=== PATIENT | female | born 1985 | race Caucasian/White ===

== ENCOUNTER 2019-07-20 05:30 | Inpatient (IN) ==
[2019-07-20] MEDS ORDERED: Metoclopramide 10 MG/2 ML VIAL IVP PRN ×2 (05:50→12:44)
[2019-07-20] MEDS ORDERED: Famotidine 20 MG/2 ML VIAL IVP PRN (05:50)
[2019-07-20] MEDS ORDERED: Naloxone 0.4 MG/ML INJ IVP PRN (05:50)
[2019-07-20] MEDS ORDERED: Ringers Solution, Lactated 1,000 ML IVC ONE (05:51)
[2019-07-20] MEDS ORDERED: Ringers Solution, Lactated 1,000 ML IVC SCH (06:00)
[2019-07-20 06:41] LABS: Basophils % 0.2 %; Eosinophils # 0.1 K/mcL (0.0-0.6); Eosinophils % 0.5 %; Hematocrit 36.4 % (35.3-44.9); Immature Granulocytes % 0.8 % (0-4); Lymphocytes # 1.4 K/mcL (0.6-4.6); Lymphocytes % 14.7 %; Mean Corpuscular Hemoglobin 28.2 pg (28.0-33.3); Mean Corpuscular Volume 85.4 fL (83.0-100.0); Mean Platelet Volume 12.3 fL (9.4-12.4); Monocytes # 0.5 K/mcL (0.0-1.3); Monocytes % 5.5 %; Neutrophils # 7.6 K/mcL (1.6-8.9); Platelet Count 206 K/mcL (140-400); Red Blood Count 4.26 M/mcL (3.82-4.97); Red Cell Distribution Width 15.6 % (11.5-14.5); Segmented Neutrophils % 78.3 %; White Blood Count 9.7 K/mcL (4.3-11.1)
[2019-07-20] MEDS ORDERED: *HR* Morphine Sulfate/PF 10 MG/10 ML AMPUL ONE (06:56)
[2019-07-20] MEDS ORDERED: *HR* FentaNYL (PF) 100 MCG/2 ML VIAL ONE (06:56)
[2019-07-20] MEDS ORDERED: Acetaminophen IV 1,000 MG/100 ML INFUS..BTL IVPB ONE (07:39)
[2019-07-20] MEDS ORDERED: Ondansetron 4 MG/2 ML VIAL IVP PRN ×2 (07:39→12:44)
[2019-07-20] MEDS ORDERED: *HR* HYDROmorphone (PF) 1 MG/ML SYRINGE IVP PRN (07:39)
[2019-07-20] MEDS ORDERED: CeFAZolin Premix DUPLEX 2,000 MG/50 ML BAG IVPB ONE (07:41)
[2019-07-20] MEDS ORDERED: *HR* Oxytocin 10 UNIT/ML VIAL IM ONE ×2 (07:44→08:26)
[2019-07-20] MEDS ORDERED: Water for inj. (sterile) 10 ML ONE (07:44)
[2019-07-20] MEDS ORDERED: Ringers Solution, Lactated 1,000 ML ONE (08:05)
[2019-07-20 08:07] LABS: Amphetamine Screen,Urine Negative ng/mL (Cutoff=1000); Barbiturate Screen,Urine Negative ng/mL (Cutoff=200); Benzodiazepines Screen,Urine Negative ng/mL (Cutoff=200); Cannabinoid Screen,Urine Negative ng/mL (Cutoff = 50); Cocaine Screen,Urine Negative ng/mL (Cutoff= 300); Opiate Screen,Urine Negative ng/mL (Cutoff=300); Phencyclidine Screen,Urine Negative ng/mL (Cutoff=25)
[2019-07-20] MEDS ORDERED: Oxytocin 20 units/ LR 1000 mL 20 UNIT/1,000 ML BAG IVC ONE (12:30)
[2019-07-20] MEDS ORDERED: Acetaminophen 325 MG TABLET PO PRN (12:44)
[2019-07-20] MEDS ORDERED: Rho Immune Globulin 1,500 UNIT SYRINGE IM ONE (12:44)
[2019-07-20] MEDS ORDERED: Oxytocin 20 units/ LR 1000 mL 20 UNIT/1,000 ML BAG IVC SCH (12:44)
[2019-07-20] MEDS ORDERED: Sennosides 8.6 MG TABLET PO PRN (12:44)
[2019-07-20] MEDS: *HR* OxyCODONE/APAP 5/325 TABLET PO PRN (18:12)
[2019-07-20] MEDS: ceFAZolin 1,000 MG in Water for inj. (sterile) 10 ML IVP SCH (18:13)
[2019-07-20] MEDS: Simethicone 80 MG TAB.CHEW PO PRN (20:44)
[2019-07-20] MEDS: Ibuprofen 600 MG TABLET PO PRN (23:52)
[2019-07-21] MEDS: ceFAZolin 1,000 MG in Water for inj. (sterile) 10 ML IVP SCH ×2 (01:33→08:11)
[2019-07-21 05:27] LABS: Basophils % 0.2 %; Eosinophils # 0.1 K/mcL (0.0-0.6); Eosinophils % 0.6 %; Hematocrit 31.5 % (35.3-44.9); Immature Granulocytes % 0.6 % (0-4); Lymphocytes # 1.2 K/mcL (0.6-4.6); Lymphocytes % 12.1 %; Mean Corpuscular HGB Conc 32.7 g/dL (31.6-35.5); Mean Corpuscular Hemoglobin 28.6 pg (28.0-33.3); Mean Corpuscular Volume 87.5 fL (83.0-100.0); Mean Platelet Volume 12.8 fL (9.4-12.4); Monocytes # 0.9 K/mcL (0.0-1.3); Monocytes % 8.8 %; Neutrophils # 7.9 K/mcL (1.6-8.9); Platelet Count 160 K/mcL (140-400); Red Cell Distribution Width 15.8 % (11.5-14.5); Segmented Neutrophils % 77.7 %; White Blood Count 10.1 K/mcL (4.3-11.1)
[2019-07-21 06:07] LABS: Hemoglobin 10.3 g/dL (11.5-15.4)
[2019-07-21] MEDS: Prenatal Vit/FA 1 EACH TABLET PO SCH (08:11)
[2019-07-21] MEDS: *HR* OxyCODONE/APAP 5/325 TABLET PO PRN ×4 (08:20→22:49)
[2019-07-21] MEDS: Ibuprofen 600 MG TABLET PO PRN ×2 (10:08→16:05)
[2019-07-21] MEDS: Simethicone 80 MG TAB.CHEW PO PRN ×2 (12:20→21:24)
[2019-07-22] MEDS: Ibuprofen 600 MG TABLET PO PRN ×2 (00:01→08:59)
[2019-07-22] MEDS: *HR* OxyCODONE/APAP 5/325 TABLET PO PRN ×2 (05:04→08:59)
[2019-07-22 07:42] VITALS: BP 105/72
[2019-07-22] MEDS: Prenatal Vit/FA 1 EACH TABLET PO SCH (08:58)
[2019-07-22] MEDS ORDERED: FLU Vac QV 19-20 (6Month+)/PF 0.5 ML SYRINGE IM ONE (10:31)
== END 2019-07-22 13:15 | disposition home or self-care (01) | DRG 785 ==
LOC: 1NENULAB 05:34 → 1NENUOBS 12:12
PROVIDERS: ADMIT Obstetrics & Gynecology; ATTEND Obstetrics & Gynecology